=== PATIENT | female | born 1965 | race Two or more races ===

== ENCOUNTER 2021-06-03 17:53 | Emergency (ER) | payer MEDICAID ==
[~2021-06-03] VITALS: Ht 162.6 cm; Wt 61.2 kg
--- NOTE | 2021-06-03 18:19 | NUR ---
KJ FROM THE STREET. TO ER BED 15. AAOX4. NOT IN RESP DISTRESS. BROUGHT IN FOR PASSING OUT AFTER SMOKING WHAT SHE REPORTED TO BE CRACK. WAS AT THE BEDSIDE FOR EVAL.
--- NOTE | 2021-06-03 20:55 | NUR ---
PT AMBULATED TO BATHROOM ON STEADY GAIT. PT VERBALIZED THAT SHE IS FEELING BETTER
--- NOTE | 2021-06-03 21:21 | NUR ---
Patient discharged to home in stable condition. Written and verbal after care instructions given. Patient verbalizes understanding of instruction.IV removed. Catheter intact and site benign. Pressure and 4x4 applied to site. No bleeding noted. Pt ambulatory with a steady gait
[2021-06-03 21:22] VITALS: BP 129/84
== END 2021-06-03 21:25 | disposition home or self-care (01) ==
LOC: ER 17:56
DX: F19.10 Other psychoactive substance abuse, uncomplicated (principal); F20.9 Schizophrenia, unspecified; E11.9 Type 2 diabetes mellitus without complications